=== PATIENT | female | born 1965 | race Caucasian/White ===

== ENCOUNTER → 2017-03-30 | Outpatient (CLI) | payer BC ==
--- NOTE | 2017-03-30 09:28 | RAD ---
2 view CXR: Clinical indications: History of endometrial cancer. Comparison study none available. Findings: No acute lung infiltrate or pleural effusion or pulmonary edema or lung mass or pneumothorax is seen. The heart size is at the upper limits of normal. The pulmonary vasculature, mediastinum and both nory are unremarkable. The osseous structures appear intact. Impression: No acute radiographic abnormality is seen.
== END | disposition home or self-care (01) ==
LOC: DXRADRC 09:08
PROVIDERS: ATTEND Family Medicine
DX: R07.9 Chest pain, unspecified (principal); Z85.9 Personal history of malignant neoplasm, unspecified
CPT/HCPCS: 71020

== ENCOUNTER → 2017-12-29 | Outpatient (CLI) | payer BC ==
--- NOTE | 2017-12-29 15:21 | RAD ---
Indication: Left knee pain for 2 days. Technique: 3 views of the left knee Comparison: None Findings: Suggestion of previous ACL repair. No acute fracture or dislocation. There is medial and patellofemoral compartment joint space narrowing with moderate size osteophyte formation. Chondrocalcinosis noted in the medial and lateral joint compartment. No suprapatellar effusion. 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
== END | disposition home or self-care (01) ==
LOC: DXRAD 14:41 → EDBD 14:41
PROVIDERS: ATTEND Orthopaedic Surgery Sports Medicine
DX: M17.12 Unilateral primary osteoarthritis, left knee (principal); M11.262 Other chondrocalcinosis, left knee; M25.762 Osteophyte, left knee
CPT/HCPCS: 73562